=== PATIENT | male | born 1980 | race Caucasian/White ===

== ENCOUNTER 2018-01-14 19:42 | Emergency (ER) | payer OTHER ==
[~2018-01-14] VITALS: Ht 177.8 cm; Wt 95.7 kg
[~2018-01-14 19:42] MED LIST: ALBU90OI INH; AMOX500 PO; AMPDEX10; AMPDEX10CR PO; BENZ100A PO; BENZ2 PO; BUPR150T2 PO; BUSP5 PO; CEPH500 PO; CIPR500 PO; CLON.1; CLON1; DIPATR PO; DOXE50; DOXE50 PO; DOXY100 PO; FLUO20; HYDACE5 PO; HYDACE5325 PO; HYDPAM25; IBUP800 PO; LITH300C; LITH300C PO; LITH300CA PO; METPHE20; METPHE20ER; MUPI1NAS; OXYACE7.5T PO; PERP4 PO; PROM25 PO; QUET200; QUET300 PO; RXHYDACE PO; RXOXYACE PO; RXSULTRIDS PO; SULTRIDS PO; SULTRISS PO; ZIPR40 PO; ZIPR60 PO; ZIPR80; [UNRECOGNIZED DRUG - REMARK]
[2018-01-14] MEDS ORDERED: Mirtazapine45 M1 PO (19:50)
[2018-01-14] MEDS ORDERED: AMPDEX5 (19:50)
[2018-01-14] MEDS ORDERED: CLON1 PO (19:50)
[2018-01-14] MEDS ORDERED: BUPR100 PO (19:50)
[2018-01-14] MEDS ORDERED: Norco 5-325 Ta1 EACH PO (20:07)
[2018-01-14] MEDS ORDERED: IBUP800 PO (20:07)
[2018-01-14] MEDS ORDERED: Bactrim Ds Tab1 EACH PO (20:07)
[2018-01-14] MEDS ORDERED: CEPH500 PO (20:07)
== END 2018-01-14 20:20 | disposition home or self-care (01) ==
LOC: ER 19:42
DX: L03.115 Cellulitis of right lower limb (principal); M70.31 Other bursitis of elbow, right elbow; Z79.899 Other long term (current) drug therapy; Z79.2 Long term (current) use of antibiotics; F31.9 Bipolar disorder, unspecified; F90.9 Attention-deficit hyperactivity disorder, unspecified type; Z87.891 Personal history of nicotine dependence